=== PATIENT | male | born 1955 | race Caucasian/White ===

== ENCOUNTER → 2017-09-01 07:30 | Outpatient (CLI) | payer SELFPAY ==
[2017-09-01 08:36] LABS: Hemoglobin A1c 5.8 % (4.2-6.3)
== END ==
PROVIDERS: Family Provider Family Medicine; PCP Family Medicine; Visit Provider Family Medicine
DX: R73.03 Prediabetes (principal)
CPT/HCPCS: 36415; 83036

== ENCOUNTER → 2018-08-31 | Outpatient (CLI) | payer OTHER, SELFPAY ==
[2018-08-31 11:38] LABS: Absolute Lymphocyte Count 1.07 X10^3/ul (0.83-4.51); Absolute Neutrophil Count 2.1 X10^3/uL (2.0-7.7); Basophil# 0.01 X10^3/uL; Basophil% 0.3 % (0-1); Eosinophils% 2.8 % (0-5); Hematocrit 43.9 % (40-54); Hemoglobin 14.5 g/dl (13.0-16.5); Lymphocyte # 1.07 X10^3/ul (4.0); Lymphocyte % 29.5 % (19-41); Mean Corpuscular Hgb 28.4 pg (27.0-32.0); Mean Corpuscular Volume 85.9 fL (80-94); Mean Platelet Vol. 10.5 fl (6.2-12.0); Monocyte# 0.37 X10^3/uL; Monocyte% 10.2 % (0-10); Neutrophil # 2.06 X10^3/uL (2.7-7.7); Neutrophil % 56.6 % (47-70); Platelet Count 167 K/mm3 (150-450); RBC Distribution Width CV 13.5 % (11.6-14.6); RBC Distribution Width SD 41.8 fl (35.1-43.9); Red Blood Count 5.11 M/mm3 (4.6-6.2); White Blood Count 3.6 K/mm3 (4.4-11.0)
[2018-08-31 11:39] LABS: POSITIVE COUNT NO; POSITIVE DIFFERENTIAL NO; POSITIVE MORPHOLOGY NO
[2018-08-31 11:41] LABS: Color, Urine Yellow (Yellow); Glucose, Dipstick Normal (Normal); Ketone-Dipstick 5 mg/dl (Negative); Leukocyte Esterase-Dipstick 25 /ul (Negative); Nitrite-Dipstick Negative (Negative); Occult Blood-Urine Negative /ul (Negative); Protein-Dipstick 15 mg/dl (Negative); Specific Gravity, Urine 1.015 (1.002-1.030); Urine Bilirubin Dipstick Negative (Negative); Urine Clarity Clear (Clear); Urine Urobilinogen Normal (Normal)
[2018-08-31 11:47] LABS: Hemoglobin A1c 6.1 % (4.2-6.3)
[2018-08-31 11:58] LABS: ALB/GLOB Ratio 1.1 RATIO (0.9-2.4); AST(SGOT) 23 U/L (15-37); Alanine Aminotransfer ALT/SGPT 42 U/L (16-61); Albumin, Serum 3.7 g/dL (3.2-5.0); Alkaline Phosphatase 49 U/L (45-117); Anion Gap 4 (5-15); BUN 16 mg/dL (7-18); BUN/Creat Ratio 15.8 RATIO (10-20); Calcium,Total 8.8 mg/dL (8.5-10.1); Chloride 108 mmol/L (98-107); Cholesterol 157 mg/dL (200); Creatinine, Serum 1.01 mg/dL (0.70-1.30); EST Glomerular Filtration Rate 80 mL/min (>60); Est Glom Filt Rate - Afr Amer 96 mL/min (>60); Globulin 3.3 g/dL (2.2-4.2); Glucose 128 mg/dL (74-106); High Density Lipoprotein 31 mg/dL; Potassium 4.1 mmol/L (3.5-5.1); Sodium Level 141 mmol/L (136-145); Triglycerides 96 mg/dL; Very Low Density Lipoprotein 19 mg/dL (5-40)
== END | disposition home or self-care (01) ==
LOC: LAB 10:43
PROVIDERS: Family Provider Family Medicine; PCP Family Medicine; Referring Provider Family Medicine; Visit Provider Family Medicine
DX: Z00.00 Encounter for general adult medical examination without abnormal findings (principal); R73.03 Prediabetes; R97.20 Elevated prostate specific antigen [PSA]; I10 Essential (primary) hypertension
CPT/HCPCS: 36415; 80053; 80061; 81002; 83036; 85025

== ENCOUNTER 2019-02-19 09:39 | Day surgery (SDC) | payer OTHER, SELFPAY ==
[2019-02-12 11:24] VITALS: BP 148/91; PULSE 56; RESP 16; TEMP 36.2; O2SAT 99; BMI 39.1
--- NOTE | 2019-02-12 11:34 | SDCEKG_ITS ---
Test Reason : Blood Pressure : / mmHG Vent. Rate : 052 BPM Atrial Rate : 052 BPM P-R Int : 166 ms QRS Dur : 098 ms QT Int : 448 ms P-R-T Axes : -06 -05 011 degrees QTc Int : 416 ms Sinus bradycardia Minimal voltage criteria for LVH, may be normal variant Borderline ECG Confirmed by HENRY LOCK, TAWANA ([id number]), news assignment editor CECILIO LANDEROS ([id number]) on 02/17/2019 9:39:50 AM Referred By: Celestine Blanchard Confirmed By:TAWANA FIGUEROA MD
[2019-02-12 11:56] LABS: Hematocrit 43.6 % (40-54); Hemoglobin 14.5 g/dL (13.0-16.5); Mean Corp Hgb Conc 33.3 g/dL (32-36); Mean Corpuscular Hgb 29.2 pg (27.0-32.0); Mean Corpuscular Volume 87.7 fL (80-94); Mean Platelet Vol. 10.4 fl (6.2-12.0); Platelet Count 155 K/mm3 (150-450); RBC Distribution Width CV 13.2 % (11.6-14.6); RBC Distribution Width SD 42.2 fl (35.1-43.9); Red Blood Count 4.97 M/mm3 (4.6-6.2); White Blood Count 4.5 K/mm3 (4.4-11.0)
[2019-02-12 12:14] LABS: AST(SGOT) 16 U/L (15-37); Alanine Aminotransfer ALT/SGPT 38 U/L (16-61); Albumin, Serum 3.8 g/dL (3.2-5.0); Alkaline Phosphatase 47 U/L (45-117); Anion Gap 4 (5-15); BUN 13 mg/dL (7-18); BUN/Creat Ratio 14.7 RATIO (10-20); Bilirubin, Direct 0.19 mg/dL (0.00-0.30); Chloride 106 mmol/L (98-107); Creatinine, Serum 0.88 mg/dL (0.70-1.30); EST Glomerular Filtration Rate 93 mL/min (>60); Est Glom Filt Rate - Afr Amer 112 mL/min (>60); Estimated Creatinine Clearance 98.36 ml/min; Globulin 3.3 g/dL (2.2-4.2); Glucose 118 mg/dL (74-106); Potassium 4.3 mmol/L (3.5-5.1); Protein, Total 7.1 g/dL (6.4-8.2); Sodium Level 139 mmol/L (136-145)
[2019-02-19] VITALS (10 sets, daily range): BP systolic 117–161; BP diastolic 62–93; PULSE 59–80; RESP 16–18; TEMP 35.9–36.8; O2SAT 92–98; BMI 38.0
[2019-02-19] MEDS: Lactated Ringers 1,000 ML 100 ML IV ×2 (10:27→15:05)
--- NOTE | 2019-02-19 12:00 | PROS_PTH ---
PATIENT: MEAGAN ROBERT [place] [facility] [place][id number] AGE/SX: 64/M ROOM: RE02/19/[address]: Dr. Celestine Blanchard MD : 1955 BED: DIS: 02/20/2019 SPEC #: [id number] RECD: 02/19/19 16:05 STATUS: JOYCE BI #: [id number] EDGARD: 02/19/19 12:[address]: Celestine Blanchard DEPT: SURGICAL PATHOLOGY RECD BY: Travis Ellis ENTERED: 02/20/19 07:57 SP TYPE: TURP OTHR DR: Dr. Ten Henning MD Tissues: Prostate, NOS Procedures: Surgery Specimen Level IV HEADER OPERATION: Cysto, TUR prostate, Olymp[employer] PRE-OP DIAGNOSIS: BPH TISSUE SUBMITTED: Prostate tissue MICROSCOPIC DIAGNOSIS Prostate, transurethral resection: Benign nodular hyperplasia, glandular and stromal types. Chronic inflammation. AM:alirio 02/21/19 MICROSCOPIC DESCRIPTION Slides are reviewed. GROSS DESCRIPTION Received is one container labeled with the patient's name and designated prostate tissue. The specimen consists of multiple irregular fragments of pink-garza, rubbery, soft tissue that in aggregate weigh 14.8 gm and measure in aggregate 6 x 5.5 x 2 cm. Promotion Officer tissue is submitted in 12 cassettes. About 90% of the specimen is submitted. / SJ:alirio 02/20/19 TC:3 CPT: 85214
[2019-02-19] MEDS: Cefazolin 2 GM in 0.9% Normal Saline 100 ML IV (13:38)
--- NOTE | 2019-02-19 13:44 | DCINST_ITS ---
Discharge Diet: Light diet - advance as tolerated, Soft diet Discharge Activity: Return to Normal Activity Return to work on:: 03/12/19 May resume sexual activity in: 6 weeks Lifting Restrictions: no lifting Call your doctor if your incision/area has: Continuous Slow Oozing, Sudden Increased Bleeding, Increased Pain/ Swelling, Increased Redness, Foul Smelling Discharge, Swelling at the incision site Call your doctor if you observe: Fever of 101 or Higher, Inability to urinate Suture Line Care: Avoid Pulling/Pushing, Avoid Pinching/Bending Instructions: Transurethral Resection of the Prostate (TURP): Home Recovery Allergies/Adverse Reactions: Allergies No Known Allergies Allergy (Verified 02/19/19 10:07) Medications to take at Discharge Cyanocobalamin (Vitamin B-12) [Vitamin B-12] 1,000 mcg PO DAILY 02/12/19 Dutasteride [Avodart] 0.5 mg PO DAILY 02/12/19 Metoprolol Tartrate [Lopressor (Beta Debby)] 50 mg PO DAILY 02/12/19 Multivitamin with Minerals [Multiple Vitamin] 1 ea PO DAILY 02/12/19 Tamsulosin HCl [Flomax] 0.4 mg PO DAILY 02/12/19 Ciprofloxacin [Cipro] 500 mg PO BID #14 tab 02/19/19 The following prescriptions were given: Ciprofloxacin [Cipro] 500 mg PO BID #14 tab Prescription Printed Primary Care Physician: Ten Henning MD [Primary Care Provider] - Test Results: Test results from this visit will be discussed in further detail at your follow- up appointment, if applicable. Please Follow Up With: Celestine Blanchard MD When: in 2 weeks, please call to make an appointment. Proposed Discharge Date: 02/20/19
--- NOTE | 2019-02-19 14:55 | OP.PCM_ITS ---
Report of Operation Date of Procedure: 02/19/19 Pre-Operative Diagnosis: BPH with obstruction Post-Operative Diagnosis: Same Surgery/Procedure Performed:: Transurethral resection of the prostate Description of Surgical Findings:: 64-year-old male with a significantly enlarged prostate with obstructive symptoms and also has obstruction on cystoscopy on maximal medical therapy with tamsulosin and Proscar still having significant problems emptying his bladder so today he is elected to proceed with a transurethral resection of the prostate we talked about the surgery itself the risks involved bleeding infection incontinence regrowth of tissue surgery in the future failure to control symptoms. After reviewing everything in the patient and reviewing his expectations we will proceed 64-year-old male taken back to the operating room at the smooth induction of general anesthesia he was placed in dorsolithotomy position penis and testicles are prepped and draped in usual sterile fashion I first went in the bladder with a 21 Maltese rigid cystourethroscope to do inspection, the entire length urethra is normal the scar tissues or abnormality the sphincter was intact, the verumontanum was in the mid prostate there is a lot of prostatic tissue behind the verumontanum I then went into the bladder he had a obstructive median lobe identified the right and left ureteral orifice. I then put in the continuous- flow resectoscope and started resecting I assured marked out the distal ends of my resection at the [place] however there is a lot of obstructive tissue that was protruding down from the prostate beyond the Dara. After the very was was marked then I started the resection at the bladder neck and worked my way back to the verumontanum and then resected the right lobe of the prostate and then resect the left low the prostate and I switched over to the button vaporization action and vaporized the rest of the resection especially vaporizing very close to the sphincter make ensure that I had resected all the obstructive tissue but making sure I did not wrist resect behind the verumontanum the obstructive floppy tissue was then all resected the did a flow test had a nice wide open flow obtain hemostasis but a catheter into the bladder and the catheter was put on continuous bladder irrigation took about an hour to do the entire surgery and the patient is currently being awakened from anesthesia. At the end of the rese ction the urine was nice and clear on irrigation the left and right ureter orifice were uninjured and the sphincter looked intact when I look back in. Type of Anesthesia:: General Drains: [address] - Admit VTE Documentation VTE Present on Admission: No VTE Mechan Device Prophylaxis: SCD's
[2019-02-19] MEDS: Ciprofloxacin 400 MG/200 ML BAG 200 MG IV (21:15)
[2019-02-19] MEDS: Docusate Sodium 100 MG Capsule PO (21:19)
[2019-02-19] MEDS: 0.9% Normal Saline 1,000 ML 75 ML IV (21:25)
[2019-02-20] MEDS: Ibuprofen 600 MG Tablet PO (01:31)
[2019-02-20 02:30] VITALS: BP 128/83; PULSE 56; RESP 18; TEMP 36.8; O2SAT 100
--- NOTE | 2019-02-20 07:40 | PCM.PN.BLA ---
Progress Note Status post TURP the urine is fairly clear irrigation has been stopped today we can remove the catheter if he is able to urinate okay he can go home.
[2019-02-20 07:50] VITALS: O2SAT 96
[2019-02-20 09:18] VITALS: BP 148/93; PULSE 65; RESP 16; TEMP 36.5; O2SAT 99
[2019-02-20] MEDS: Docusate Sodium 100 MG Capsule PO (09:23)
[2019-02-20] MEDS: Tamsulosin HCl 0.4 MG Capsule PO (09:23)
[2019-02-20 09:24] VITALS: PULSE 65
[2019-02-20] MEDS: Metoprolol(XL)Succ 50 MG Tablet PO (09:24)
[2019-02-20] MEDS: Pantoprazole Sodium 40 MG Tablet PO (09:24)
[2019-02-20] MEDS: Ciprofloxacin 400 MG/200 ML BAG 200 MG IV (09:25)
== END 2019-02-20 12:22 | disposition home or self-care (01) ==
LOC: SDC 09:39 → AC 09:39 → MS3 13:59
PROVIDERS: Anesthesiology; Family Provider Family Medicine; PCP Family Medicine; Referring Provider Urology; Visit Provider Urology
PROC: (CPT 52601; principal; 2019-02-19 11:50)
DX: N40.1 Benign prostatic hyperplasia with lower urinary tract symptoms (principal); N13.8 Other obstructive and reflux uropathy; R35.0 Frequency of micturition; R33.8 Other retention of urine; R35.1 Nocturia; I10 Essential (primary) hypertension; G25.81 Restless legs syndrome; Z86.19 Personal history of other infectious and parasitic diseases; Z79.899 Other long term (current) drug therapy; Z87.891 Personal history of nicotine dependence
CPT/HCPCS: 52601; 80048; 80076; 85027; 88305; 93005; 99251; J7030; J7120; G0463; J0744; J2405

== ENCOUNTER 2019-02-22 13:21 | Emergency (ER) | payer OTHER, SELFPAY ==
[2019-02-19 10:08] VITALS: BMI 38.0
[2019-02-22 13:22] VITALS: BP 147/93; PULSE 70; RESP 15; TEMP 36.8; O2SAT 97; BMI 38.8
[2019-02-22 14:57] LABS: Bacteria 0 SEEN /hpf (None Seen); Mucous, Urine 0 SEEN /hpf (<or=2+); Squamous Epithelial Cells - UA 0 SEEN /hpf (0-5); White Blood Cells 0 SEEN /hpf (0-5)
[2019-02-22 15:10] LABS: Color, Urine Yellow (Yellow); Glucose, Dipstick Normal (Normal); Ketone-Dipstick 5 mg/dl (Negative); Leukocyte Esterase-Dipstick 100 /ul (Negative); Nitrite-Dipstick Positive (Negative); Occult Blood-Urine 250 /ul (Negative); Protein-Dipstick 100 mg/dl (Negative); Specific Gravity, Urine 1.015 (1.002-1.030); Urine Bilirubin Dipstick Negative (Negative); Urine Clarity Turbid (Clear); Urine Urobilinogen 1 mg/dl (Normal); Urine pH 6.5 (5.0 - 8.0)
[2019-02-22 15:18] LABS: Red Blood Cells-Urine > 100 SEEN /hpf (0-5)
[2019-02-22] MEDS: Phenazopyridine 95 MG Tablet 190 MG PO (15:38)
[2019-02-22] MEDS: Smz/Tmp Ds Tablet 1 TABLET PO (15:38)
--- NOTE | 2019-02-22 15:44 | ED.VISSUMM ---
- ER Visit Summary Date of Service: 02/22/19 Chief Complaint: [Urinary retention] History of Present Illness: The patient is a 64 M [resents to the ER with complaint of inability to urinate this morning. Patient states that he had prostate surgery and had a TURP that was done 3 days ago. Patient had had no issues leading up to today with urinating. Patient states that he had been constipated and had some bowel movements this morning. Patient on arrival to the emergency department went into the bathroom and had another large bowel movement and then was able to urinate. Patient denies any abdominal pain currently. He denies any fever. He is currently on ciprofloxacin. Patient has history of hypertension however no other medical issues.] Physical Examination: [HEENT-PERRLA, EOMI. Cranial nerves II through XII grossly intact. TMs clear. Mucous membranes moist. No adenopathy. Cardiovascular-regular rate and rhythm without murmur or ectopy Lungs-clear to auscultation, chest wall stable without crepitus or subcu emphysema Abdomen-normoactive bowel sounds, soft, nontender, no rebound or rigidity, no peritoneal signs. Extremities-intact ?4, normal range of motion, normal pulses, atraumatic] Test Results: [Urinalysis obtained showed greater than 100 RBCs and positive nitrites. 0 WBCs seen. Ultrasound.] Emergency Department Course and Treatment: [Bladder scan on arrival showed 150 cc of urine. This was discussed with patient's urologist who wanted me to continue with the Cipro. Patient did receive 1 dose of Bactrim while in the emergency department before I was told the patient was still on Cipro.] Treatment Plan: [Follow-up with urology as instructed prior.] I suspect his retention may have been caused by constipation which is what the patient believes happened as well. Also possible he may have had a clot obstructing the flow of urine from the bladder. Disposition: [Discharged home in stable condition.] Impression: [Urinary retention-resolved] This note was generated with [employer] dictation software. It may contain incorrect words, spelling, and punctuation that were not noted in review of the chart prior to signing ED Disposition - Plan for ED Patient: Referrals: Ten Henning MD [Primary Care Provider] -
--- NOTE | 2019-02-22 15:46 | ED.DEP ---
ED Disposition - Plan for ED Patient: Instructions: URINARY RETENTION, Male Referrals: Ten Henning MD [Primary Care Provider] - Celestine Blanchard MD [STAFF PHYSICIAN] - 3-5 Days
[2019-02-22 16:00] VITALS: PULSE 74; RESP 16; O2SAT 97
== END 2019-02-22 16:02 | disposition home or self-care (01) ==
LOC: ED 13:57
PROVIDERS: Emergency Provider Emergency Medicine; Family Provider Family Medicine; PCP Family Medicine
DX: R33.9 Retention of urine, unspecified (principal); Z98.890 Other specified postprocedural states; K59.00 Constipation, unspecified; I10 Essential (primary) hypertension; Z79.899 Other long term (current) drug therapy
CPT/HCPCS: 81001; 87086; 99283

== ENCOUNTER → 2019-11-01 07:31 | Outpatient (CLI) | payer OTHER, SELFPAY ==
[2019-11-01 08:29] LABS: Color, Urine Yellow (Yellow); Glucose, Dipstick Normal (Normal); Ketone-Dipstick Negative (Negative); Leukocyte Esterase-Dipstick Negative /ul (Negative); Nitrite-Dipstick Negative (Negative); Occult Blood-Urine Negative /ul (Negative); Protein-Dipstick 30 mg/dl (Negative); Urine Bilirubin Dipstick Negative (Negative); Urine Clarity Clear (Clear); Urine Urobilinogen Normal (Normal)
[2019-11-01 08:32] LABS: Absolute Lymphocyte Count 1.05 X10^3/uL (0.83-4.51); Absolute Neutrophil Count 2.1 X10^3/uL (2.0-7.7); Basophil# 0.03 X10^3/uL; Basophil% 0.8 % (0-1); Eosinophils% 2.7 % (0-5); Hematocrit 44.2 % (40-54); Hemoglobin 14.5 g/dL (13.0-16.5); Lymphocyte # 1.05 X10^3/ul (4.0); Lymphocyte % 28.7 % (19-41); Mean Corp Hgb Conc 32.8 g/dL (32-36); Mean Corpuscular Hgb 28.8 pg (27.0-32.0); Mean Corpuscular Volume 87.9 fL (80-94); Mean Platelet Vol. 10.9 fl (6.2-12.0); Monocyte# 0.37 X10^3/uL; Monocyte% 10.1 % (0-10); NRBC Flagged by Analyzer 0 % (0-5); Neutrophil % 57.4 % (47-70); Platelet Count 148 K/mm3 (150-450); RBC Distribution Width CV 13.2 % (11.6-14.6); RBC Distribution Width SD 42.7 fl (35.1-43.9); Red Blood Count 5.03 M/mm3 (4.6-6.2); White Blood Count 3.7 K/mm3 (4.4-11.0)
[2019-11-01 09:06] LABS: ALB/GLOB Ratio 1.2 RATIO (0.9-2.4); AST(SGOT) 20 U/L (15-37); Alanine Aminotransfer ALT/SGPT 47 U/L (16-61); Albumin, Serum 3.7 g/dL (3.2-5.0); Alkaline Phosphatase 51 U/L (45-117); Anion Gap 7 (5-15); BUN 16 mg/dL (7-18); BUN/Creat Ratio 16.9 RATIO (10-20); Calcium,Total 8.4 mg/dL (8.5-10.1); Chloride 106 mmol/L (98-107); Cholesterol 180 mg/dL (200); Creatinine, Serum 0.95 mg/dL (0.70-1.30); EST Glomerular Filtration Rate 86 mL/min (>60); Est Glom Filt Rate - Afr Amer 104 mL/min (>60); Globulin 3.1 g/dL (2.2-4.2); Glucose 162 mg/dL (74-106); Hemoglobin A1c 6.7 % (3.8-5.6); High Density Lipoprotein 30 mg/dL; PSA,Total- Diagnostic 3.49 ng/mL (0.0-4.0); Protein, Total 6.8 g/dL (6.4-8.2); Sodium Level 139 mmol/L (136-145); Triglycerides 96 mg/dL; Very Low Density Lipoprotein 19 mg/dL (5-40)
== END ==
LOC: LAB 07:33
PROVIDERS: PCP Family Medicine; Referring Provider Urology; Visit Provider Urology
DX: Z00.00 Encounter for general adult medical examination without abnormal findings (principal); R73.03 Prediabetes; I10 Essential (primary) hypertension; R68.82 Decreased libido
CPT/HCPCS: 36415; 80053; 80061; 81002; 83036; 84153; 84403; 85025

== ENCOUNTER → 2020-03-13 07:43 | Outpatient (CLI) | payer OTHER, SELFPAY ==
[2020-03-13 08:37] LABS: Anion Gap 3 (5-15); BUN 16 mg/dL (7-18); BUN/Creat Ratio 15.8 RATIO (10-20); Calcium,Total 8.6 mg/dL (8.5-10.1); Chloride 105 mmol/L (98-107); Creatinine, Serum 1.01 mg/dL (0.70-1.30); EST Glomerular Filtration Rate 79 mL/min (>60); Est Glom Filt Rate - Afr Amer 96 mL/min (>60); Glucose 188 mg/dL (74-106); Sodium Level 139 mmol/L (136-145)
[2020-03-13 08:46] LABS: Hemoglobin A1c 7.2 % (3.8-5.6)
== END ==
PROVIDERS: PCP Family Medicine
DX: I10 Essential (primary) hypertension (principal); R73.03 Prediabetes
CPT/HCPCS: 36415; 80048; 83036

== ENCOUNTER → 2020-05-01 07:40 | Outpatient (CLI) | payer OTHER, SELFPAY ==
[2020-05-01 08:18] LABS: AST(SGOT) 20 U/L (15-37); Alanine Aminotransfer ALT/SGPT 56 U/L (16-61); Albumin, Serum 3.7 g/dL (3.2-5.0); Alkaline Phosphatase 51 U/L (45-117); Bilirubin, Direct 0.13 mg/dL (0.00-0.30); Cholesterol 172 mg/dL (200); Globulin 3.3 g/dL (2.2-4.2); High Density Lipoprotein 32 mg/dL; Triglycerides 103 mg/dL; Very Low Density Lipoprotein 21 mg/dL (5-40)
== END ==
PROVIDERS: PCP Family Medicine
DX: E78.5 Hyperlipidemia, unspecified (principal)
CPT/HCPCS: 36415; 80061; 80076

== ENCOUNTER 2020-05-06 15:00 | Outpatient (RCR) | payer OTHER, SELFPAY | END 2020-05-16 23:59 | LOC: DC 15:00 | PROVIDERS: PCP Family Medicine | DX: Z71.3 Dietary counseling and surveillance (principal); E11.9 Type 2 diabetes mellitus without complications | CPT/HCPCS: G0108 ==

== ENCOUNTER 2020-05-27 15:00 | Outpatient (RCR) | payer OTHER, SELFPAY | END 2020-06-13 23:59 | LOC: DC 15:00 | PROVIDERS: PCP Family Medicine | DX: Z71.3 Dietary counseling and surveillance (principal); E11.9 Type 2 diabetes mellitus without complications | CPT/HCPCS: 97802; G0108 ==

== ENCOUNTER → 2020-06-12 07:48 | Outpatient (CLI) | payer OTHER, SELFPAY ==
[2020-06-12 09:10] LABS: Anion Gap 6 (5-15); BUN 13 mg/dL (7-18); BUN/Creat Ratio 13.3 RATIO (10-20); Calcium,Total 8.9 mg/dL (8.5-10.1); Chloride 106 mmol/L (98-107); Creatinine, Serum 0.98 mg/dL (0.70-1.30); EST Glomerular Filtration Rate 82 mL/min (>60); Est Glom Filt Rate - Afr Amer 99 mL/min (>60); Glucose 136 mg/dL (74-106); Potassium 4.2 mmol/L (3.5-5.1); Sodium Level 140 mmol/L (136-145)
== END ==
PROVIDERS: PCP Family Medicine
DX: I10 Essential (primary) hypertension (principal)
CPT/HCPCS: 36415; 80048

== ENCOUNTER 2020-07-05 16:30 | Outpatient (RCR) | payer OTHER, SELFPAY | END 2020-07-14 23:59 | LOC: DC 16:30 | PROVIDERS: PCP Family Medicine | DX: E11.9 Type 2 diabetes mellitus without complications (principal) | CPT/HCPCS: 97803 ==

== ENCOUNTER 2020-07-26 14:55 | Outpatient (RCR) | payer OTHER, SELFPAY | END 2020-08-13 23:59 | LOC: DC 14:55 | PROVIDERS: PCP Family Medicine | DX: E11.9 Type 2 diabetes mellitus without complications (principal) | CPT/HCPCS: 97803 ==

== ENCOUNTER → 2020-08-07 07:17 | Outpatient (CLI) | payer OTHER, SELFPAY ==
[2020-08-07 08:48] LABS: Hemoglobin A1c 5.9 % (3.8-5.6)
== END ==
PROVIDERS: PCP Family Medicine
DX: E11.9 Type 2 diabetes mellitus without complications (principal)
CPT/HCPCS: 36415; 83036

== ENCOUNTER 2020-09-09 15:00 | Outpatient (RCR) | payer OTHER, SELFPAY | END 2020-09-13 23:59 | LOC: DC 15:00 | PROVIDERS: PCP Family Medicine | DX: E11.9 Type 2 diabetes mellitus without complications (principal) | CPT/HCPCS: 97803; G0108 ==

== ENCOUNTER → 2020-09-23 14:07 | Outpatient (CLI) | payer OTHER, SELFPAY ==
[2020-09-23 14:53] LABS: Absolute Lymphocyte Count 1.03 X10^3/uL (0.83-4.51); Absolute Neutrophil Count 2.9 X10^3/uL (2.0-7.7); Basophil# 0.03 X10^3/uL; Basophil% 0.7 % (0-1); Eosinophil# 0.08 X10^3/uL; Eosinophils% 1.8 % (0-5); Hematocrit 45.2 % (40-54); Lymphocyte # 1.03 X10^3/ul (0.83-4.51); Lymphocyte % 22.9 % (19-41); Mean Corp Hgb Conc 33.2 g/dL (32-36); Mean Corpuscular Hgb 29.3 pg (27.0-32.0); Mean Corpuscular Volume 88.3 fL (80-94); Mean Platelet Vol. 10.6 fl (6.2-12.0); Monocyte# 0.46 X10^3/uL; Monocyte% 10.2 % (0-10); NRBC Flagged by Analyzer 0 % (0-5); Neutrophil # 2.89 X10^3/uL (2.7-7.7); Neutrophil % 64.2 % (47-70); Platelet Count 177 K/mm3 (150-450); RBC Distribution Width CV 13.1 % (11.6-14.6); RBC Distribution Width SD 42.1 fl (35.1-43.9); Red Blood Count 5.12 M/mm3 (4.6-6.2); White Blood Count 4.5 K/mm3 (4.4-11.0)
[2020-09-23 15:27] LABS: ALB/GLOB Ratio 1.2 RATIO (0.9-2.4); AST(SGOT) 22 U/L (15-37); Alanine Aminotransfer ALT/SGPT 40 U/L (16-61); Albumin, Serum 3.8 g/dL (3.2-5.0); Alkaline Phosphatase 50 U/L (45-117); Anion Gap 5 (5-15); BUN 17 mg/dL (7-18); Calcium,Total 9.1 mg/dL (8.5-10.1); Chloride 109 mmol/L (98-107); Cholesterol 128 mg/dL (200); Creatinine, Serum 0.95 mg/dL (0.70-1.30); EST Glomerular Filtration Rate 85 mL/min (>60); Est Glom Filt Rate - Afr Amer 103 mL/min (>60); Globulin 3.3 g/dL (2.2-4.2); Glucose 110 mg/dL (74-106); High Density Lipoprotein 36 mg/dL; Potassium 3.9 mmol/L (3.5-5.1); Protein, Total 7.1 g/dL (6.4-8.2); Sodium Level 142 mmol/L (136-145); Triglycerides 99 mg/dL; Very Low Density Lipoprotein 20 mg/dL (5-40)
[2020-09-23 15:32] LABS: Hemoglobin A1c 6.1 % (3.8-5.6)
== END ==
PROVIDERS: PCP Family Medicine; Referring Provider Family Medicine; Visit Provider Family Medicine
DX: Z00.00 Encounter for general adult medical examination without abnormal findings (principal); E11.9 Type 2 diabetes mellitus without complications; E78.5 Hyperlipidemia, unspecified; I10 Essential (primary) hypertension; R97.20 Elevated prostate specific antigen [PSA]
CPT/HCPCS: 36415; 80053; 80061; 83036; 84153; 85025

== ENCOUNTER 2020-09-23 14:27 | Outpatient (RCR) | payer OTHER, SELFPAY | END 2020-09-23 23:59 | disposition home or self-care (01) | LOC: DC 14:27 | PROVIDERS: PCP Family Medicine | DX: E11.9 Type 2 diabetes mellitus without complications (principal) | CPT/HCPCS: 97803 ==

== ENCOUNTER → 2021-03-19 07:08 | Outpatient (CLI) | payer OTHER, SELFPAY ==
[2021-03-19 07:53] LABS: ALB/GLOB Ratio 1.1 RATIO (0.9-2.4); AST(SGOT) 18 U/L (15-37); Alanine Aminotransfer ALT/SGPT 39 U/L (16-61); Albumin, Serum 3.5 g/dL (3.2-5.0); Alkaline Phosphatase 46 U/L (45-117); Anion Gap 5 (5-15); BUN 16 mg/dL (7-18); BUN/Creat Ratio 16.3 RATIO (10-20); Calcium,Total 8.6 mg/dL (8.5-10.1); Chloride 107 mmol/L (98-107); Cholesterol 130 mg/dL (200); Creatinine, Serum 0.98 mg/dL (0.70-1.30); EST Glomerular Filtration Rate 81 mL/min (>60); Est Glom Filt Rate - Afr Amer 99 mL/min (>60); Globulin 3.3 g/dL (2.2-4.2); Glucose 165 mg/dL (74-106); High Density Lipoprotein 33 mg/dL; Potassium 4.1 mmol/L (3.5-5.1); Protein, Total 6.8 g/dL (6.4-8.2); Sodium Level 139 mmol/L (136-145); Triglycerides 74 mg/dL; Very Low Density Lipoprotein 15 mg/dL (5-40)
[2021-03-19 07:57] LABS: Hemoglobin A1c 6.4 % (3.8-5.6)
== END ==
PROVIDERS: PCP Family Medicine; Referring Provider Family Medicine; Visit Provider Family Medicine
DX: I10 Essential (primary) hypertension (principal); E78.5 Hyperlipidemia, unspecified; E11.9 Type 2 diabetes mellitus without complications
CPT/HCPCS: 36415; 80053; 80061; 83036

== ENCOUNTER 2021-08-25 18:27 | Emergency (ER) | payer OTHER, SELFPAY ==
[2021-08-25 18:28] VITALS: BP 151/106; PULSE 82; RESP 16; TEMP 36.6; O2SAT 97; BMI 37.5
--- NOTE | 2021-08-25 19:13 | EX.ED.GUMALE ---
HPI History of Present Illness Chief Complaint: Complaint Informant: patient Narrative Narrative: Foamy intermittent dark versus bloody urine for the past 5 days. Dysuria. No fevers or abdominal pain. No back pain. History of BPH had surgery by Dr. Blanchard 5 years ago. Self-limiting sinus infection 2 weeks ago. Has some loose stools prior to urine symptoms. Denies decreased urine output. Prior similar symptoms: No PFSH PFSH Medical History (Updated 08/26/21 @ 01:[address] Nikhil Montiel DO) Cataracts, both eyes Enlarged prostate Former smoker Hypertension Home Medications multivitamin with minerals 1 ea PO DAILY 02/12/19 [History Last Taken 02/18/19] metoprolol succinate 50 mg PO QHS 02/19/19 [History Last Taken 02/19/19 07:00] lisinopril 10 mg PO DAILY 08/25/21 [History Last Taken Unknown] Allergy/AdvReac Type Severity Reaction Status Date / Time No Known Allergies Allergy Verified 08/25/21 18:28 Surgical History (Updated 08/25/21 @ 20:01 by Elida Fernandez) S/P TURP (transurethral resection of prostate) Surgical History no surgical history Social History Smoking Status: Never smoker ROS ROS ED Constitutional Constitutional ED: Denies chills, fever(s) or sweats Eyes Eyes: Denies change in vision ENT ENT ED: Denies dysphagia or sore throat Cardiovascular Cardiovascular: Denies chest pain, leg edema, palpitations or racing heartbeat Respiratory/Chest Respiratory/Chest: Denies cough, dyspnea or dyspnea on exertion Gastrointestinal Gastrointestinal: Denies abdominal pain, diarrhea, nausea or vomiting Genitourinary Genitourinary ED: Reports dysuria and hematuria; Denies urinary frequency Musculoskeletal Musculoskeletal: Denies back pain, extremity pain or neck pain Integumentary Denies rash or wounds Neurologic Neurologic: Denies headache(s), paresthesias or weakness EXAM Physical Exam Const Vital Signs: 08/25/21 18:28 08/25/21 21:33 Temperature 98 F Temperature Source Temporal Pulse Rate 82 79 Respiratory Rate 16 16 Blood Pressure 151/106 H 162/114 H Blood Pressure Mean 121 130 Pulse Ox 97 97 Oxygen Delivery Method Room Air Room Air Positive well nourished and well developed General Appearance ED: well developed and NAD HEENT Reports moist mucous membranes normocephalic and atraumatic Eyes PERRL, EOMs intact bilaterally and conjunctivae normal General Eye ED: Yes normal appearance of both eyes Neck no lymphadenopathy and supple General: Negative for tenderness Chest Wall Chest: Negative for tenderness Resp normal respiratory effort and normal air movement Effort and Inspection: symmetric chest movement; Negative for respiratory distress Cardio regular rate, regular rhythm and no murmurs Peripheral Pulses: pulses 2+ throughout GI normal to inspection, nondistended, normoactive bowel sounds and non-tender Palpation: Negative for guarding or rebound tenderness present Back/Spine no CVA tenderness and no thoracic nor lumbar tenderness Extremity normal to inspection General Extremety ED: Negative for edema or tenderness General Extremity: Negative for edema Neuro oriented x3 and no sensory deficits noted Sensorium / Orientation: awake and alert Skin no rashes or lesions noted and no wounds MDM MDM MDM Narrative Medical decision making narrative: Patient nontoxic on exam no acute distress. History reporting foamy to brown to red urine. Work-up initiated rule out any acute kidney injury. Creatinine was 1.09. WBC 6.1 hemoglobin 15.1. Urine noted hematuria with no infection cultures were sent. He reports he has had surgery to his prostate in the past followed by Dr. Blanchard, he denies tobacco history. I discussed and further work-up with imagings for structural evaluation. He agreed. CT IV contrast obtained noting a thickening bladder. Discussed this with the patient. He is given follow-up with Dr. Blanchard. He is urinating without difficulties. On reevaluation states urine was clearing up. However discussed he will need follow-up with urology. All questions were answered. Lab Data Attestation: I reviewed the patient's lab results. Labs: Laboratory Results - last 24 hr 08/25/21 08/25/21 08/25/21 19:11 19:19 19:19 WBC 6.1 RBC 5.22 Hgb 15.1 Hct 45.9 MCV 87.9 MCH 28.9 MCHC 32.9 RDW Std Deviation 41.5 RDW Coeff of Niki 12.9 Plt Count 198 MPV 10.5 Immature Gran % (Auto) 0.300 Neut % (Auto) 67.5 Lymph % (Auto) 19.9 [place] % (Auto) 10.0 Eos % (Auto) 1.5 Baso % (Auto) 0.8 Absolute Neuts (auto) 4.1 Absolute Lymphs (auto) 1.21 Nucleated RBC % 0 Sodium 140 Potassium 4.2 Chloride 109 H Carbon Dioxide 26.0 Anion Gap 5 BUN 21 H Creatinine 1.09 Estim Creat Clear Calc 77.38 Est GFR (MDRD) Af Amer 87 Est GFR (MDRD) Non-Af 72 BUN/Creatinine Ratio 19.3 Glucose 179 H Calcium 9.4 Urine Color Brown Urine Clarity Cloudy Urine pH 7.0 Ur Specific [place] 1.020 Urine Protein 500 H Urine Glucose (UA) Normal Urine Ketones 5 H Urine Occult Blood 250 H Urine Nitrite Negative Urine Bilirubin Negative Urine Urobilinogen Normal Ur Leukocyte Esterase Negative Urine RBC > 100 SEEN Urine WBC 0-5 SEEN Ur Squamous Epith Cells 0 SEEN Urine Bacteria 0 SEEN Urine Mucus RARE Radiography Diagnostic Testing: Clinical Impression(s) from Imaging Studies Abdomen/Pelvis CT 08/25/21 20:50 IMPRESSION: 1. Intermediate density layering within the dependent portion the urinary bladder suggesting blood product/hematoma. 2. Bladder wall thickening may be artifact or nondistention versus cystitis versus muscular hyperplasia. Electronically Signed: Willi Sow MD (Brooks) at 21:26 EDT Reading Location ID and State: [facility] / [place] , Service support , Discharge Plan Triage Chief Complaint: Complaint ED Provider: Nikhil Montiel Dx/Rx/DC Orders Clinical Impression: Hematuria, Bladder wall thickening Instructions: ED Hematuria Prescriptions: No Action multivitamin with minerals 1 EACH tablet 1 ea PO DAILY RF: 0 metoprolol succinate 50 MG tablet extended release 24 hr 50 mg PO QHS RF: 0 lisinopril 10 mg Tablet 10 mg PO DAILY RF: 0 Primary Care Provider: Ten Henning Referrals: Celestine Blanchard MD [STAFF PHYSICIAN] - 3-5 Days Ten Henning MD [Primary Care Provider] - Activity Restrictions/Additional Instructions: Urine with blood no infection. Culture pending. CT scan notes bladder wall thickening. Follow-up with Dr. Blanchard. Disposition Disposition: Home, Self Care Discharge Date/Time: 08/25/21 22:19
[2021-08-25 19:16] LABS: Bacteria 0 SEEN /hpf (None Seen); Squamous Epithelial Cells - UA 0 SEEN /hpf (0-5)
[2021-08-25 19:17] LABS: Color, Urine Brown (Yellow); Glucose, Dipstick Normal (Normal); Ketone-Dipstick 5 mg/dl (Negative); Leukocyte Esterase-Dipstick Negative /ul (Negative); Nitrite-Dipstick Negative (Negative); Occult Blood-Urine 250 /ul (Negative); Protein-Dipstick 500 mg/dl (Negative); Urine Bilirubin Dipstick Negative (Negative); Urine Clarity Cloudy (Clear); Urine Urobilinogen Normal (Normal)
[2021-08-25 19:34] LABS: Mucous, Urine RARE /hpf (<or=2+); Red Blood Cells-Urine > 100 SEEN /hpf (0-5)
[2021-08-25 19:35] LABS: White Blood Cells 0-5 SEEN /hpf (0-5)
[2021-08-25 19:42] LABS: Absolute Lymphocyte Count 1.21 X10^3/uL (0.83-4.51); Absolute Neutrophil Count 4.1 X10^3/uL (2.0-7.7); Basophil# 0.05 X10^3/uL; Basophil% 0.8 % (0-1); Eosinophil# 0.09 X10^3/uL; Eosinophils% 1.5 % (0-5); Hematocrit 45.9 % (40-54); Hemoglobin 15.1 g/dL (13.0-16.5); Lymphocyte # 1.21 X10^3/ul (0.83-4.51); Lymphocyte % 19.9 % (19-41); Mean Corp Hgb Conc 32.9 g/dL (32-36); Mean Corpuscular Hgb 28.9 pg (27.0-32.0); Mean Corpuscular Volume 87.9 fL (80-94); Mean Platelet Vol. 10.5 fl (6.2-12.0); Monocyte# 0.61 X10^3/uL; NRBC Flagged by Analyzer 0 % (0-5); Neutrophil % 67.5 % (47-70); Platelet Count 198 K/mm3 (150-450); RBC Distribution Width CV 12.9 % (11.6-14.6); RBC Distribution Width SD 41.5 fl (35.1-43.9); Red Blood Count 5.22 M/mm3 (4.6-6.2); White Blood Count 6.1 K/mm3 (4.4-11.0)
[2021-08-25 19:53] LABS: Anion Gap 5 (5-15); BUN 21 mg/dL (7-18); BUN/Creat Ratio 19.3 RATIO (10-20); Calcium,Total 9.4 mg/dL (8.5-10.1); Chloride 109 mmol/L (98-107); Creatinine, Serum 1.09 mg/dL (0.70-1.30); EST Glomerular Filtration Rate 72 mL/min (>60); Est Glom Filt Rate - Afr Amer 87 mL/min (>60); Estimated Creatinine Clearance 77.38 ml/min; Glucose 179 mg/dL (74-106); Potassium 4.2 mmol/L (3.5-5.1); Sodium Level 140 mmol/L (136-145)
--- NOTE | 2021-08-25 20:50 | CT_ITS ---
STUDY: CT ABDOMEN AND PELVIS WITH CONTRAST REASON FOR EXAM: Male, 66 years old. hematuria RADIATION DOSAGE (If Supplied By Facility): CTDIvol = ( 26.74 ) mGy, DLP = ( 1565.28 ) mGycm TECHNIQUE: Transaxial images were obtained from the dome of the diaphragm to the symphysis pubis without oral contrast. IV 100mL Isovue-370 was administered. Sagittal and coronal images were reconstructed. Individualized dose optimization techniques were used for this CT. COMPARISON: None. FINDINGS: The visualized lung bases are unremarkable. The visualized portions of the heart are within normal limits. There is decreased attenuation of the liver consistent with steatosis. No hepatic masses. Normal gallbladder and extrahepatic biliary system. Normal spleen. Normal pancreas. Normal bilateral adrenal glands. Bilateral renal cysts. No required imaging follow-up needed given high likelihood of benign nature. No hydronephrosis. Normal visualized stomach. Normal small intestine. There are multiple colonic diverticula consistent with diverticulosis. The appendix is visualized and appears normal. Atherosclerosis of the abdominal aorta. 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 Normal inferior vena cava. Normal retroperitoneum. Diffuse wall thickening of the urinary bladder, albeit not well distended. Intermediate density layers dependently in the urinary bladder on image 110 of series 2. The prostate is enlarged. Predominantly fat-containing hernia of the right inguinal region with appendix extending into the hernia sac. There are diffuse degenerative changes of the visualized lumbar spine. CT/Abdomen/Pelvis W IV Cont ONLY IMPRESSION: 1. Intermediate density layering within the dependent portion the urinary bladder suggesting blood product/hematoma. 2. Bladder wall thickening may be artifact or nondistention versus cystitis versus muscular hyperplasia. Electronically Signed: Willi Sow MD ([place]) at 21:26 EDT ,
[2021-08-25 21:33] VITALS: BP 162/114; PULSE 79; RESP 16; O2SAT 97
== END 2021-08-25 22:19 | disposition home or self-care (01) ==
PROVIDERS: Emergency Provider Emergency Medicine; PCP Family Medicine; Visit Provider Emergency Medicine
DX: R31.9 Hematuria, unspecified (principal); I10 Essential (primary) hypertension; N32.89 Other specified disorders of bladder; Z79.899 Other long term (current) drug therapy; N40.0 Benign prostatic hyperplasia without lower urinary tract symptoms
CPT/HCPCS: 74177; 80048; 81001; 85025; 87086; 99282; Q9967; A4216

== ENCOUNTER → 2021-09-10 | Outpatient (CLI) | payer OTHER, SELFPAY ==
[2021-09-10 08:15] LABS: Absolute Lymphocyte Count 1.08 X10^3/uL (0.83-4.51); Absolute Neutrophil Count 2.3 X10^3/uL (2.0-7.7); Basophil# 0.03 X10^3/uL; Basophil% 0.8 % (0-1); Eosinophil# 0.15 X10^3/uL; Eosinophils% 3.8 % (0-5); Hematocrit 43.8 % (40-54); Hemoglobin 14.2 g/dL (13.0-16.5); Lymphocyte # 1.08 X10^3/ul (0.83-4.51); Lymphocyte % 27.3 % (19-41); Mean Corp Hgb Conc 32.4 g/dL (32-36); Mean Corpuscular Hgb 28.7 pg (27.0-32.0); Mean Corpuscular Volume 88.7 fL (80-94); Mean Platelet Vol. 10.4 fl (6.2-12.0); Monocyte% 10.1 % (0-10); NRBC Flagged by Analyzer 0 % (0-5); Neutrophil # 2.28 X10^3/uL (2.7-7.7); Neutrophil % 57.7 % (47-70); Platelet Count 140 K/mm3 (150-450); RBC Distribution Width CV 12.9 % (11.6-14.6); Red Blood Count 4.94 M/mm3 (4.6-6.2)
[2021-09-10 08:41] LABS: ALB/GLOB Ratio 1.1 RATIO (0.9-2.4); AST(SGOT) 17 U/L (15-37); Alanine Aminotransfer ALT/SGPT 44 U/L (16-61); Albumin, Serum 3.5 g/dL (3.2-5.0); Alkaline Phosphatase 48 U/L (45-117); Anion Gap 4 (5-15); BUN 16 mg/dL (7-18); BUN/Creat Ratio 15.4 RATIO (10-20); Calcium,Total 8.5 mg/dL (8.5-10.1); Chloride 108 mmol/L (98-107); Cholesterol 113 mg/dL (200); Creatinine, Serum 1.04 mg/dL (0.70-1.30); EST Glomerular Filtration Rate 76 mL/min (>60); Est Glom Filt Rate - Afr Amer 92 mL/min (>60); Globulin 3.2 g/dL (2.2-4.2); Glucose 212 mg/dL (74-106); High Density Lipoprotein 34 mg/dL; PSA,Total - Annual Screen 5.18 ng/mL (0.00-4.00); Potassium 4.1 mmol/L (3.5-5.1); Protein, Total 6.7 g/dL (6.4-8.2); Sodium Level 140 mmol/L (136-145); Triglycerides 93 mg/dL; Very Low Density Lipoprotein 19 mg/dL (5-40)
[2021-09-10 08:50] LABS: Hemoglobin A1c 7.7 % (3.8-5.6)
== END | disposition home or self-care (01) ==
LOC: LAB 07:59
PROVIDERS: PCP Family Medicine; Referring Provider Family Medicine; Visit Provider Family Medicine
DX: Z00.00 Encounter for general adult medical examination without abnormal findings (principal); E11.9 Type 2 diabetes mellitus without complications; E78.5 Hyperlipidemia, unspecified; I10 Essential (primary) hypertension; R97.20 Elevated prostate specific antigen [PSA]
CPT/HCPCS: 36415; 80053; 80061; 83036; 84153; 85025; G0103

== ENCOUNTER 2021-12-14 08:00 | Outpatient (RCR) | payer OTHER, SELFPAY ==
[2021-11-23 10:15] VITALS: BP 144/93; PULSE 59; RESP 18; TEMP 36.1
--- NOTE | 2021-11-23 10:52 | PCM.WC.HP ---
History of Present Illness Date of Service: 11/23/21 Chief Complaint: Follow-up on an open and sebaceous cyst History of Wound: Went to urgent care at [facility] about this lump on his back. He cultured it and sent him on his way with doxycycline And told him to follow-up with the wound center. Patient has no previous history except for blood or high blood pressure. [facility] Medical History Cataracts, both eyes Enlarged prostate Former smoker Hypertension Home Medications multivitamin with minerals 1 ea PO DAILY supplement 02/12/19 [History Last Taken 02/18/19] metoprolol succinate 50 mg tablet,extended release 24 hr 50 mg PO QHS HEART 02/19/19 [History Last Taken 02/19/19 07:00] lisinopril 10 mg tablet 10 mg PO DAILY 08/25/21 [History Last Taken Unknown] Allergy/AdvReac Type Severity Reaction Status Date / Time No Known Allergies Allergy Verified 08/25/21 18:28 Surgical History S/P TURP (transurethral resection of prostate) Social History Smoking Status: Never smoker ROS Integumentary Integumentary: Reports wounds and other Details: Opening from a sebaceous cyst in the right lower back flank area Vital Signs Vital Signs Vital Signs: 11/23/21 10:15 Temperature 97 F L Temperature Source Temporal Pulse Rate 59 L Respiratory Rate 18 Blood Pressure 144/93 H Blood Pressure Mean 110 Blood Pressure Source Monitor Blood Pressure Position Sitting Blood Pressure Location Left Arm Oxygen Delivery Method Room Air Physical Exam Const oriented x3 General Appearance: cooperative Exam Limitations: no limitations Resp normal respiratory effort Effort and Inspection: able to speak in complete sentences Auscultation: clear to auscultation bilaterally Cardio regular rate and regular rhythm Palpation: normal PMI Rate: regular rate Rhythm: regular rhythm GI Auscultation: normoactive bowel sounds Palpation: soft and no hepatosplenomegaly external exam normal Back/Spine Cervical Spine: cervical ROM normal Thoracic Spine / Upper Back: normal to inspection Lumbar Spine / Lower Back: normal to inspection Skin no rashes or lesions noted Wound Narrative: Open wound right lower back no sac seen in the open wound has some circumferential undermining. Looks clean no sign of infection. Neuro oriented x3 Psych Appearance: grossly normal Speech: normal speech Thought Content: normal thought content Judgement: judgement good Debridement Note Debridement Note Wound debrided: Nonhealing sebaceous cyst right lower back Laterality: Right Type of Debridement: Excisional debridement Anesthesia Used: 5% Lidocaine Gel Depth: in the subcutaneous layer Percentage of wound debrided: 100 Instrument Used: 3mm curette Tissue Removed: Fibrin Severity: Fat Layer Exposed Amount of bleeding with debridement: Mild Bleeding Controlled with: Compression and gauze Patient tolerated procedure: Patient tolerated procedure well Post-Debridement Measurements and Additional Note: Post-Debridement Measurements/Treatment - Nurse 1 - General Ulcer Assessment Start: 11/23/21 10:15 Freq: Status: Active Protocol: ADITYA Activity Type Activity Date Activity User E-sign Co-sign Detail Recorded Client Recorded Date Recorded By Document 11/23/21 10:15 MO [id number] 11/23/21 10:26 MO 11/23/21 10:15 - Today's Visit Information Type of service Initial Visit Arrival Mode Ambulatory Patient Identification Verified (Name & Yes ) Vital Signs Temperature (97.8 F-99.1 F) 97 F L Temperature Source Temporal Pulse Rate (60-100) 59 L Pulse Location Monitor Respiratory Rate (12-18) 18 Respiratory rate source Observation Oxygen Delivery Method Room Air Blood Pressure (90/60-120/80) 144/93 H Blood Pressure Mean 110 Source Monitor Position Sitting Blood Pressure Location Left Arm History Since Last Visit- (Skip if this is Patient's initial visit) Left Footwear Regular Shoe Right Footwear Regular Shoe Pain Scale: 0-10 Numeric Is Patient Pain Free? Yes - Nurse 1 - General Ulcer Measurement Start: 11/23/21 10:15 Freq: Status: Active Protocol: Activity Type Activity Date Activity User E-sign Co-sign Detail Recorded Client Recorded Date Recorded By Document 11/23/21 10:15 MO [id number] 11/23/21 10:26 MO 11/23/21 10:15 Wound Center Nurse 1 #1 Right Upper Back -Current Size (cm) - Length 1.0 -Current Size (cm) - Width 0.9 -Current Size (cm) - Depth 0.4 -Total Square Cm 0.90 -Exudate Amt Medium -Exudate Type Sanguineous -Wound Margin Flat & Intact -Granulation Amt Large (67-100%) -Granulation Quality Pale,[place] -Texture (Shonda-wound Skin Appearance) Assessed -Moisture (Shonda-wound Skin Appearance) Assessed -Color (Shonda-wound Skin Appearance) Assessed -Temperature (Shonda-wound Skin No Abnormality Appearance) (Pt Warm) -Tenderness on Palpation (Shonda-wound No Skin Appearance) -Ulcer Cleansing Rinsed/ Irrigated with Saline -Foul Odor after Cleansing No -Anesthetic Used 4% Lidocaine Solution Lower Limb Edema Present NA WC - Nurse 2 - General Ulcer CM Notes Start: 11/23/21 10:15 Freq: Status: Active Protocol: Activity Type Activity Date Activity User E-sign Co-sign Detail Recorded Client Recorded Date Recorded By Document 11/23/21 10:33 MW [id number] 11/23/21 10:38 MW 11/23/21 10:33 Wound Center Nurse 2 #1 Right Upper Back -Time 10:35 -Correct Patient Yes -Correct Side, Site, Position Yes -Correct Procedure Yes -Procedure Performed Yes -Type of Procedure Debridement -Clinical Debridement Subcutaneous -Tissue Removed Subcutaneous -Post Debridement (cm) - Length 1.0 -Post Debridement (cm) - Width 0.7 -Post Debridement (cm) - Depth 0.6 -Total Square (Post) (cm) 0.70 -Area of Debridement (cm) - Length 1.0 -Area of Debridement (cm) - Width 0.7 -Total Square (Area) (cm) 0.70 -Tunneling No -Undermining/Tunneling No -Circular Undermining No -Wound/Ulcer Outcome Not Healed -Ulcer Cleansing Rinsed/ Irrigated with Saline -Foul Odor after Cleansing No -Bioengineered Tissue No -Bleeding Controlled with Pressure -Treatment Response Procedure Tolerated Well -Offloading No -Debridement - Subq, 1st 20sq cm Yes Pain Scale: 0-10 Numeric Is Patient Pain Free? Yes Assessment/Plan Assessment/Plan (1) Hypertension: CODE(S): I10 - Essential (primary) hypertension (2) Sebaceous cyst: CODE(S): L72.3 - Sebaceous cyst PLAN: Wash area with antibacterial soap apply Aquacel extra strips packing to the circumferential area underneath the skin and in the wound base itself. Moistened with water every day and cover with gauze dressing. Follow-up 1 week
[2021-11-30 08:19] VITALS: BP 159/100; PULSE 78; TEMP 36.1
--- NOTE | 2021-11-30 09:25 | PCM.WC.PN ---
History of Present Illness Date of Service: 11/30/21 Chief Complaint: Follow-up on an open and sebaceous cyst History of Wound: Went to urgent care at [facility] about this lump on his back. He cultured it and sent him on his way with doxycycline And told him to follow-up with the wound center. Patient has no previous history except for blood or high blood pressure. Progress of Wound: The hole is about the same size but the undermining is gone depth is better filling in with skin buds. Subjective Subjective Patient is happy that it is improving Objective Data Objective Data As above no sign of infection the undermining is sealed and the depth is more shallow. Vital Signs: Vital Signs Temp Pulse Resp BP O2 Del Method 97.0 F L 78 18 159/100 H Room Air 11/30/21 08:19 11/30/21 08:19 11/23/21 10:15 11/30/21 08:19 11/23/21 10:15 Oxygen Delivery Method Room Air Physical Exam Const oriented x3 General Appearance: cooperative Exam Limitations: no limitations Resp normal respiratory effort Effort and Inspection: able to speak in complete sentences Auscultation: clear to auscultation bilaterally Cardio regular rate and regular rhythm Palpation: normal PMI Rate: regular rate Rhythm: regular rhythm GI Auscultation: normoactive bowel sounds Palpation: soft and no hepatosplenomegaly external exam normal Back/Spine Cervical Spine: cervical ROM normal Thoracic Spine / Upper Back: normal to inspection Lumbar Spine / Lower Back: normal to inspection Skin no rashes or lesions noted Wound Narrative: Open wound right lower back no sac seen in the open wound has some circumferential undermining. Looks clean no sign of infection. Neuro oriented x3 Psych Appearance: grossly normal Speech: normal speech Thought Content: normal thought content Judgement: judgement good Debridement Note Debridement Note Wound debrided: Right upper back sebaceous cyst now open Type of Debridement: Excisional debridement Anesthesia Used: 5% Lidocaine Gel Depth: in the subcutaneous layer Percentage of wound debrided: 100 Instrument Used: 5mm curette Tissue Removed: Fibrin Severity: Fat Layer Exposed Amount of bleeding with debridement: Mild Bleeding Controlled with: Compression and gauze Patient tolerated procedure: Patient tolerated procedure well Post-Debridement Measurements and Additional Note: Post-Debridement Measurements/Treatment LETICIA - Nurse 1 - General Ulcer Assessment Start: 11/23/21 10:15 Freq: Status: Active Protocol: ADITYA Activity Type Activity Date Activity User E-sign Co-sign Detail Recorded Client Recorded Date Recorded By Document 11/23/21 10:15 NC [id number] 11/23/21 10:26 NC Document 11/30/21 08:19 KR Desktop 11/30/21 08:21 KR 11/23/21 11/30/21 10:15 08:19 - Today's Visit Information Type of service Initial Visit Follow-up Visit (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 ) Arrival Mode Ambulatory Ambulatory Patient Identification Verified (Name & Yes Yes ) Vital Signs Temperature (97.8 F-99.1 F) 97 F L 97.0 F L Temperature Source Temporal Temporal Pulse Rate (60-100) 59 L 78 Pulse Location Monitor Monitor Respiratory Rate (12-18) 18 Respiratory rate source Observation Oxygen Delivery Method Room Air Blood Pressure (90/60-120/80) 144/93 H 159/100 H Blood Pressure Mean (mm Hg) 110 119 Source Monitor Monitor Position Sitting Sitting Blood Pressure Location Left Arm Right Arm History Since Last Visit- (Skip if this is Patient's initial visit) Have you changed medications since your No last visit? Any new allergies or adverse reactions No Had a fall/change in ADL's that may No increase risk of falls Signs or symptoms of abuse and/or No neglect since last visit Have you been in the hospital since your No last visit? Has dressing in place as prescribed Yes Has compression in place as prescribed N/A Has offloadiing in place as prescribed N/A Experienced any changes in pain level or No management Left Footwear Regular Shoe Right Footwear Regular Shoe Pain Scale: 0-10 Numeric Is Patient Pain Free? Yes Yes - Nurse 1 - General Ulcer Measurement Start: 11/23/21 10:15 Freq: Status: Active Protocol: Activity Type Activity Date Activity User E-sign Co-sign Detail Recorded Client Recorded Date Recorded By Document 11/23/21 10:15 NC [id number] 11/23/21 10:26 NC Document 11/30/21 08:19 KR Desktop 11/30/21 08:21 KR 11/23/21 11/30/21 10:15 08:19 Wound Center Nurse 1 #1 Right Upper Back -Current Size (cm) - Length 1.0 0.6 -Current Size (cm) - Width 0.9 0.8 -Current Size (cm) - Depth 0.4 0.3 -Total Square Cm 0.90 0.48 -Exudate Amt Medium Small -Exudate Type Sanguineous Serosanguineous -Wound Margin Flat & Intact Distinct, Outline Attached -Granulation Amt Large (67-100%) Medium (34-66%) -Granulation Quality Pale,[place] Red -Necrosis Amt None Present (0 %) -Texture (Shonda-wound Skin Appearance) Assessed Assessed, Scarring -Moisture (Shonda-wound Skin Appearance) Assessed No Abnormality, Assessed -Color (Shonda-wound Skin Appearance) Assessed No Abnormality, Assessed -Temperature (Shonda-wound Skin No Abnormality No Abnormality Appearance) (Pt Warm) (Pt Warm) -Tenderness on Palpation (Shonda-wound No No Skin Appearance) -Ulcer Cleansing Rinsed/ Irrigated with Saline -Foul Odor after Cleansing No No -Anesthetic Used 4% Lidocaine 5% Lidocaine Solution Gel Lower Limb Edema Present NA WC - Nurse 2 - General Ulcer CM Notes Start: 11/23/21 10:15 Freq: Status: Active Protocol: Activity Type Activity Date Activity User E-sign Co-sign Detail Recorded Client Recorded Date Recorded By Document 11/23/21 10:33 MW [id number] 11/23/21 10:38 MW Document 11/30/21 08:33 MW [id number] 11/30/21 08:35 MW 11/23/21 11/30/21 10:33 08:33 Wound Center Nurse 2 #1 Right Upper Back -Time 10:35 08:33 -Correct Patient Yes Yes -Correct Side, Site, Position Yes Yes -Correct Procedure Yes Yes -Procedure Performed Yes Yes -Type of Procedure Debridement Debridement -Clinical Debridement Subcutaneous Subcutaneous -Tissue Removed Subcutaneous Subcutaneous -Post Debridement (cm) - Length 1.0 1.2 -Post Debridement (cm) - Width 0.7 0.7 -Post Debridement (cm) - Depth 0.6 0.3 -Total Square (Post) (cm) 0.70 0.84 -Area of Debridement (cm) - Length 1.0 1.2 -Area of Debridement (cm) - Width 0.7 0.7 -Total Square (Area) (cm) 0.70 0.84 -Tunneling No No -Undermining/Tunneling No No -Circular Undermining No No -Wound/Ulcer Outcome Not Healed Not Healed -Ulcer Cleansing Rinsed/ Rinsed/ Irrigated with Irrigated with Saline Saline -Foul Odor after Cleansing No No -Bioengineered Tissue No No -Bleeding Controlled with Pressure Pressure -Treatment Response Procedure Procedure Tolerated Well Tolerated Well -Offloading No No -Debridement - Subq, 1st 20sq cm Yes Yes Pain Scale: 0-10 Numeric Is Patient Pain Free? Yes Yes - Nurse 3 - General Ulcer D/C NN Start: 11/23/21 10:15 Freq: Status: Active Protocol: Activity Type Activity Date Activity User E-sign Co-sign Detail Recorded Client Recorded Date Recorded By Document 11/23/21 10:52 GERSON [id number] 11/23/21 10:53 KR Document 11/30/21 08:46 CHASIDY [id number] 11/30/21 08:46 CHASIDY 11/23/21 11/30/21 10:52 08:46 Wound Care Nurse 3 #1 Right Upper Back -Ulcer Cleansing Rinsed/ Rinsed/ Irrigated with Irrigated with Saline Saline -Foul Odor after Cleansing No -Negative Pressure Wound Therapy N/A -Primary Dressing Applied Aquacel AG 4x4 Promogran -Primary Dressing Covered/Secured with Dry Gauze, Dry Gauze, Secured with Secured with Tape Tape -Aquacel AG 4x4 1 -Promogran 2 Pain Scale: 0-10 Numeric Is Patient Pain Free? Yes Yes - Visit Discharge Discharge Condition Stable Stable Ambulatory Status Ambulatory Ambulatory Transportation Private Auto Private Auto Medication Reconcilliation completed & Yes provided to patient/care provider Clinical Summary of Care Provided Yes Assessment/Plan Assessment/Plan (1) Hypertension: CODE(S): I10 - Essential (primary) hypertension (2) Sebaceous cyst: CODE(S): L72.3 - Sebaceous cyst PLAN: Wash area with antibacterial soap apply Promogran packing to the wound base itself. Moistened with water every day and cover with gauze dressing. Follow-up 1 week
[2021-12-07 08:07] VITALS: BP 150/93; PULSE 62; TEMP 36.3
--- NOTE | 2021-12-07 09:46 | PN.PCM_ITS ---
History of Present Illness Date of Service: 12/07/21 Chief Complaint: Follow-up on an open and sebaceous cyst History of Wound: Went to urgent care at [facility] about this lump on his back. He cultured it and sent him on his way with doxycycline And told him to follow-up with the wound center. Patient has no previous history except for blood or high blood pressure. Progress of Wound: The hole is in his upper back is practically healed a small divot now. Tolerating the Promogran well its closing it should be discharged by next week Subjective Subjective Patient unable to see wound but is happy that we are thinking it is healing Objective Data Objective Data Sign ofNo sign of infection surrounding skin supple and pink infection. Seeing Promogran and will continue Vital Signs: Vital Signs Temp Pulse Resp BP O2 Del Method 97.3 F L 62 18 150/93 H Room Air 12/07/21 08:07 12/07/21 08:07 11/23/21 10:15 12/07/21 08:07 11/23/21 10:15 Oxygen Delivery Method Room Air Physical Exam Const oriented x3 General Appearance: cooperative Exam Limitations: no limitations Resp normal respiratory effort Effort and Inspection: able to speak in complete sentences Auscultation: clear to auscultation bilaterally Cardio regular rate and regular rhythm Palpation: normal PMI Rate: regular rate Rhythm: regular rhythm GI Auscultation: normoactive bowel sounds Palpation: soft and no hepatosplenomegaly external exam normal Back/Spine Cervical Spine: cervical ROM normal Thoracic Spine / Upper Back: normal to inspection Lumbar Spine / Lower Back: normal to inspection Skin no rashes or lesions noted Wound Narrative: Open wound right lower back no sac seen in the open wound has some circumferential undermining. Looks clean no sign of infection. Neuro oriented x3 Psych Appearance: grossly normal Speech: normal speech Thought Content: normal thought content Judgement: judgement good Debridement Note Debridement Note Wound debrided: Right lower back wound Laterality: Right Type of Debridement: Excisional debridement Anesthesia Used: 5% Lidocaine Gel Depth: Down to and including healthy tissue Percentage of wound debrided: 100 Instrument Used: 3mm curette Tissue Removed: Slough and fibrin Severity: Limited To Skin Breakdown Amount of bleeding with debridement: Mild Bleeding Controlled with: Pressure Patient tolerated procedure: Patient tolerated procedure well Post-Debridement Measurements and Additional Note: Post-Debridement Measurements/Treatment WC - Nurse 1 - General Ulcer Assessment Start: 11/23/21 10:15 Freq: Status: Active Protocol: ADITYA Activity Type Activity Date Activity User E-sign Co-sign Detail Recorded Client Recorded Date Recorded By Document 11/23/21 10:15 MT [id number] 11/23/21 10:26 MT Document 11/30/21 08:19 KR Desktop 11/30/21 08:21 KR Document 12/07/21 08:07 KR [id number] 12/07/21 08:08 KR 11/23/21 11/30/21 12/07/21 10:15 08:19 08:07 WC - Today's Visit Information Type of service Initial Visit Follow-up Visit Follow-up 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 ) ) Arrival Mode Ambulatory Ambulatory Ambulatory Patient Identification Verified (Name & Yes Yes Yes ) Vital Signs Temperature (97.8 F-99.1 F) 97 F L 97.0 F L 97.3 F L Temperature Source Temporal Temporal Temporal Pulse Rate (60-100) 59 L 78 62 Pulse Location Monitor Monitor Monitor Respiratory Rate (12-18) 18 Respiratory rate source Observation Oxygen Delivery Method Room Air Blood Pressure (90/60-120/80) 144/93 H 159/100 H 150/93 H Blood Pressure Mean (mm Hg) 110 119 112 Source Monitor Monitor Monitor Position Sitting Sitting Semi-Fowlers Blood Pressure Location Left Arm Right Arm Right Arm History Since Last Visit- (Skip if this is Patient's initial visit) Have you changed medications since your No No last visit? Any new allergies or adverse reactions No No Had a fall/change in ADL's that may No No increase risk of falls Signs or symptoms of abuse and/or No No neglect since last visit Have you been in the hospital since your No No last visit? Has dressing in place as prescribed Yes Yes Has compression in place as prescribed N/A N/A Has offloadiing in place as prescribed N/A N/A Experienced any changes in pain level or No No management Left Footwear Regular Shoe Regular Shoe Right Footwear Regular Shoe Regular Shoe Pain Scale: 0-10 Numeric Is Patient Pain Free? Yes Yes Yes LETICIA - Nurse 1 - General Ulcer Measurement Start: 11/23/21 10:15 Freq: Status: Active Protocol: Activity Type Activity Date Activity User E-sign Co-sign Detail Recorded Client Recorded Date Recorded By Document 11/23/21 10:15 MT [id number] 11/23/21 10:26 MT Document 11/30/21 08:19 KR Desktop 11/30/21 08:21 KR Document 12/07/21 08:07 KR [id number] 12/07/21 08:08 KR 11/23/21 11/30/21 12/07/21 10:15 08:19 08:07 Wound Center Nurse 1 #1 Right Upper Back -Current Size (cm) - Length 1.0 0.6 0.4 -Current Size (cm) - Width 0.9 0.8 0.3 -Current Size (cm) - Depth 0.4 0.3 0.1 -Total Square Cm 0.90 0.48 0.12 -Exudate Amt Medium Small Small -Exudate Type Sanguineous Serosanguineous Serosanguineous -Wound Margin Flat & Intact Distinct, Distinct, Outline Outline Attached Attached -Granulation Amt Large (67-100%) Medium (34-66%) Small (1-33%) -Granulation Quality Pale,[place] -Necrosis Amt None Present (0 None Present (0 %) %) -Texture (Shonda-wound Skin Appearance) Assessed Assessed, Assessed, Scarring Scarring -Moisture (Shonda-wound Skin Appearance) Assessed No Abnormality, No Abnormality, Assessed Assessed -Color (Shonda-wound Skin Appearance) Assessed No Abnormality, No Abnormality, Assessed Assessed -Temperature (Shonda-wound Skin No Abnormality No Abnormality No Abnormality Appearance) (Pt Warm) (Pt Warm) (Pt Warm) -Tenderness on Palpation (Shonda-wound No No No Skin Appearance) -Ulcer Cleansing Rinsed/ Rinsed/ Irrigated with Irrigated with Saline Saline -Foul Odor after Cleansing No No No -Anesthetic Used 4% Lidocaine 5% Lidocaine 5% Lidocaine Solution Gel Gel Lower Limb Edema Present NA WC - Nurse 2 - General Ulcer CM Notes Start: 11/23/21 10:15 Freq: Status: Active Protocol: Activity Type Activity Date Activity User E-sign Co-sign Detail Recorded Client Recorded Date Recorded By Document 11/23/21 10:33 MW [id number] 11/23/21 10:38 MW Document 11/30/21 08:33 MW [id number] 11/30/21 08:35 MW Document 12/07/21 08:37 PL [id number] 12/07/21 08:37 PL 11/23/21 11/30/21 12/07/21 10:33 08:33 08:37 Wound Center Nurse 2 #1 Right Upper Back -Time 10:35 08:33 08:22 -Correct Patient Yes Yes Yes -Correct Side, Site, Position Yes Yes Yes -Correct Procedure Yes Yes Yes -Procedure Performed Yes Yes Yes -Type of Procedure Debridement Debridement Debridement -Clinical Debridement Subcutaneous Subcutaneous Subcutaneous -Tissue Removed Subcutaneous Subcutaneous Subcutaneous -Post Debridement (cm) - Length 1.0 1.2 0.5 -Post Debridement (cm) - Width 0.7 0.7 0.7 -Post Debridement (cm) - Depth 0.6 0.3 0.1 -Total Square (Post) (cm) 0.70 0.84 0.35 -Area of Debridement (cm) - Length 1.0 1.2 0.5 -Area of Debridement (cm) - Width 0.7 0.7 0.7 -Total Square (Area) (cm) 0.70 0.84 0.35 -Tunneling No No No -Undermining/Tunneling No No No -Circular Undermining No No No -Wound/Ulcer Outcome Not Healed Not Healed Not Healed -Ulcer Cleansing Rinsed/ Rinsed/ Rinsed/ Irrigated with Irrigated with Irrigated with Saline Saline Saline -Foul Odor after Cleansing No No No -Bioengineered Tissue No No No -Bleeding Controlled with Pressure Pressure Pressure -Treatment Response Procedure Procedure Procedure Tolerated Well Tolerated Well Tolerated Well -Offloading No No -Debridement - Subq, 1st 20sq cm Yes Yes Yes Pain Scale: 0-10 Numeric Is Patient Pain Free? Yes Yes Yes WC - Nurse 3 - General Ulcer D/C NN Start: 11/23/21 10:15 Freq: Status: Active Protocol: Activity Type Activity Date Activity User E-sign Co-sign Detail Recorded Client Recorded Date Recorded By Document 11/23/21 10:52 KR [id number] 11/23/21 10:53 KR Document 11/30/21 08:46 AK [id number] 11/30/21 08:46 AK Document 12/07/21 08:27 KR [id number] 12/07/21 08:28 KR 11/23/21 11/30/21 12/07/21 10:52 08:46 08:27 Wound Care Nurse 3 #1 Right Upper Back -Ulcer Cleansing Rinsed/ Rinsed/ Rinsed/ Irrigated with Irrigated with Irrigated with Saline Saline Saline -Foul Odor after Cleansing No -Negative Pressure Wound Therapy N/A -Primary Dressing Applied Aquacel AG 4x4 Promogran Promogran Trini Matter -Primary Dressing Covered/Secured with Dry Gauze, Dry Gauze, Dry Gauze, Secured with Secured with Secured with Tape Tape Tape -Aquacel AG 4x4 1 -Promogran 2 -Promogran Trini Matter 1 Pain Scale: 0-10 Numeric Is Patient Pain Free? Yes Yes Yes WC - Visit Discharge Discharge Condition Stable Stable Stable Ambulatory Status Ambulatory Ambulatory Ambulatory Transportation Private Auto Private Auto Private Auto Medication Reconcilliation completed & Yes provided to patient/care provider Clinical Summary of Care Provided Yes Assessment/Plan Assessment/Plan (1) Hypertension: CODE(S): I10 - Essential (primary) hypertension (2) Sebaceous cyst: CODE(S): L72.3 - Sebaceous cyst PLAN: Wash area with antibacterial soap apply Promogran packing to the wound base itself. Moistened with water every day and cover with gauze dressing. Follow-up 1 week
[2021-12-14 07:56] VITALS: BP 153/74; PULSE 100; TEMP 36.2
--- NOTE | 2021-12-14 11:02 | PN.PCM_ITS ---
History of Present Illness Date of Service: 12/14/21 Chief Complaint: Follow-up on an open and sebaceous cyst History of Wound: Went to urgent care at [facility] about this lump on his back. He cultured it and sent him on his way with doxycycline And told him to follow-up with the wound center. Patient has no previous history except for blood or high blood pressure. Progress of Wound: Wound is completely healed today patient will be discharged from the wound center Subjective Subjective Patient is very happy about not having to come back Objective Data Objective Data New skin developed no sign of infection completely closed. Vital Signs: Vital Signs Temp Pulse Resp BP O2 Del Method 97.1 F L 100 18 153/74 H Room Air 12/14/21 07:56 12/14/21 07:56 11/23/21 10:15 12/14/21 07:56 11/23/21 10:15 Oxygen Delivery Method Room Air Lab / Micro Data Attestation: I reviewed the patient's lab results. Physical Exam Const oriented x3 General Appearance: cooperative Exam Limitations: no limitations Resp normal respiratory effort Effort and Inspection: able to speak in complete sentences Auscultation: clear to auscultation bilaterally Cardio regular rate and regular rhythm Palpation: normal PMI Rate: regular rate Rhythm: regular rhythm GI Auscultation: normoactive bowel sounds Palpation: soft and no hepatosplenomegaly external exam normal Back/Spine Cervical Spine: cervical ROM normal Thoracic Spine / Upper Back: normal to inspection Lumbar Spine / Lower Back: normal to inspection Skin no rashes or lesions noted Wound Narrative: Open wound right lower back no sac seen in the open wound has some circumferential undermining. Looks clean no sign of infection. Neuro oriented x3 Psych Appearance: grossly normal Speech: normal speech Thought Content: normal thought content Judgement: judgement good Debridement Note Debridement Note No debridement was completed: No debridement was completed today Post-Debridement Measurements and Additional Note: Post-Debridement Measurements/Treatment LETICIA - Nurse 1 - General Ulcer Assessment Start: 11/23/21 10:15 Freq: Status: Active Protocol: ADITYA Activity Type Activity Date Activity User E-sign Co-sign Detail Recorded Client Recorded Date Recorded By Document 11/23/21 10:15 MT [id number] 11/23/21 10:26 MT Document 11/30/21 08:19 KR Desktop 11/30/21 08:21 KR Document 12/07/21 08:07 KR [id number] 12/07/21 08:08 KR Document 12/14/21 07:56 KR [id number] 12/14/21 08:01 KR 11/23/21 11/30/21 12/07/21 10:15 08:19 08:07 - Today's Visit Information Type of service Initial Visit Follow-up Visit Follow-up Visit (Physician/INSTRUCTIONAL DEVELOPER (Physician/INSTRUCTIONAL DEVELOPER ) ) Arrival Mode Ambulatory Ambulatory Ambulatory Patient Identification Verified (Name & Yes Yes Yes ) Vital Signs Temperature (97.8 F-99.1 F) 97 F L 97.0 F L 97.3 F L Temperature Source Temporal Temporal Temporal Pulse Rate (60-100) 59 L 78 62 Pulse Location Monitor Monitor Monitor Respiratory Rate (12-18) 18 Respiratory rate source Observation Oxygen Delivery Method Room Air Blood Pressure (90/60-120/80) 144/93 H 159/100 H 150/93 H Blood Pressure Mean (mm Hg) 110 119 112 Source Monitor Monitor Monitor Position Sitting Sitting Semi-Fowlers Blood Pressure Location Left Arm Right Arm Right Arm History Since Last Visit- (Skip if this is Patient's initial visit) Have you changed medications since your No No last visit? Any new allergies or adverse reactions No No Had a fall/change in ADL's that may No No increase risk of falls Signs or symptoms of abuse and/or No No neglect since last visit Have you been in the hospital since your No No last visit? Has dressing in place as prescribed Yes Yes Has compression in place as prescribed N/A N/A Has offloadiing in place as prescribed N/A N/A Experienced any changes in pain level or No No management Left Footwear Regular Shoe Regular Shoe Right Footwear Regular Shoe Regular Shoe Pain Scale: 0-10 Numeric Is Patient Pain Free? Yes Yes Yes 12/14/21 07:56 - Today's Visit Information Type of service Follow-up Visit (Physician/INSTRUCTIONAL DEVELOPER ) Arrival Mode Ambulatory Patient Identification Verified (Name & Yes ) Vital Signs Temperature (97.8 F-99.1 F) 97.1 F L Temperature Source Temporal Pulse Rate (60-100) 100 Pulse Location Monitor Respiratory Rate (12-18) Respiratory rate source Oxygen Delivery Method Blood Pressure (90/60-120/80) 153/74 H Blood Pressure Mean (mm Hg) 100 Source Monitor Position Semi-Fowlers Blood Pressure Location Left Arm History Since Last Visit- (Skip if this is Patient's initial visit) Have you changed medications since your No last visit? Any new allergies or adverse reactions No Had a fall/change in ADL's that may No increase risk of falls Signs or symptoms of abuse and/or No neglect since last visit Have you been in the hospital since your No last visit? Has dressing in place as prescribed Yes Has compression in place as prescribed N/A Has offloadiing in place as prescribed N/A Experienced any changes in pain level or No management Left Footwear Regular Shoe Right Footwear Regular Shoe Pain Scale: 0-10 Numeric Is Patient Pain Free? Yes WC - Nurse 1 - General Ulcer Measurement Start: 11/23/21 10:15 Freq: Status: Active Protocol: Activity Type Activity Date Activity User E-sign Co-sign Detail Recorded Client Recorded Date Recorded By Document 11/23/21 10:15 UT [id number] 11/23/21 10:26 UT Document 11/30/21 08:19 KR Desktop 11/30/21 08:21 KR Document 12/07/21 08:07 KR [id number] 12/07/21 08:08 KR Document 12/14/21 07:56 KR [id number] 12/14/21 08:01 KR 11/23/21 11/30/21 12/07/21 10:15 08:19 08:07 Wound Center Nurse 1 #1 Right Upper Back -Current Size (cm) - Length 1.0 0.6 0.4 -Current Size (cm) - Width 0.9 0.8 0.3 -Current Size (cm) - Depth 0.4 0.3 0.1 -Total Square Cm 0.90 0.48 0.12 -Exudate Amt Medium Small Small -Exudate Type Sanguineous Serosanguineous Serosanguineous -Wound Margin Flat & Intact Distinct, Distinct, Outline Outline Attached Attached -Granulation Amt Large (67-100%) Medium (34-66%) Small (1-33%) -Granulation Quality Pale,[place] Red [place] -Necrosis Amt None Present (0 None Present (0 %) %) -Texture (Shonda-wound Skin Appearance) Assessed Assessed, Assessed, Scarring Scarring -Moisture (Shonda-wound Skin Appearance) Assessed No Abnormality, No Abnormality, Assessed Assessed -Color (Shonda-wound Skin Appearance) Assessed No Abnormality, No Abnormality, Assessed Assessed -Temperature (Shonda-wound Skin No Abnormality No Abnormality No Abnormality Appearance) (Pt Warm) (Pt Warm) (Pt Warm) -Tenderness on Palpation (Shonda-wound No No No Skin Appearance) -Ulcer Cleansing Rinsed/ Rinsed/ Irrigated with Irrigated with Saline Saline -Foul Odor after Cleansing No No No -Anesthetic Used 4% Lidocaine 5% Lidocaine 5% Lidocaine Solution Gel Gel Lower Limb Edema Present NA 12/14/21 07:56 Wound Center Nurse 1 #1 Right Upper Back -Current Size (cm) - Length 0.1 -Current Size (cm) - Width 0.1 -Current Size (cm) - Depth 0.1 -Total Square Cm 0.01 -Exudate Amt None Present -Exudate Type -Wound Margin Distinct, Outline Attached -Granulation Amt None Present (0 %) -Granulation Quality -Necrosis Amt None Present (0 %) -Texture (Shonda-wound Skin Appearance) Assessed, Scarring -Moisture (Shonda-wound Skin Appearance) No Abnormality, Assessed -Color (Shonda-wound Skin Appearance) No Abnormality, Assessed -Temperature (Shonda-wound Skin No Abnormality Appearance) (Pt Warm) -Tenderness on Palpation (Shonda-wound No Skin Appearance) -Ulcer Cleansing Rinsed/ Irrigated with Saline -Foul Odor after Cleansing No -Anesthetic Used 5% Lidocaine Gel Lower Limb Edema Present WC - Nurse 2 - General Ulcer CM Notes Start: 11/23/21 10:15 Freq: Status: Active Protocol: Activity Type Activity Date Activity User E-sign Co-sign Detail Recorded Client Recorded Date Recorded By Document 11/23/21 10:33 MW [id number] 11/23/21 10:38 MW Document 11/30/21 08:33 MW [id number] 11/30/21 08:35 MW Document 12/07/21 08:37 [address] [id number] 12/07/21 08:37 PL Document 12/14/21 08:18 MW [id number] 12/14/21 08:20 MW 11/23/21 11/30/21 12/07/21 10:33 08:33 08:37 Wound Center Nurse 2 #1 Right Upper Back -Time 10:35 08:33 08:22 -Correct Patient Yes Yes Yes -Correct Side, Site, Position Yes Yes Yes -Correct Procedure Yes Yes Yes -Procedure Performed Yes Yes Yes -Type of Procedure Debridement Debridement Debridement -Clinical Debridement Subcutaneous Subcutaneous Subcutaneous -Tissue Removed Subcutaneous Subcutaneous Subcutaneous -Post Debridement (cm) - Length 1.0 1.2 0.5 -Post Debridement (cm) - Width 0.7 0.7 0.7 -Post Debridement (cm) - Depth 0.6 0.3 0.1 -Total Square (Post) (cm) 0.70 0.84 0.35 -Area of Debridement (cm) - Length 1.0 1.2 0.5 -Area of Debridement (cm) - Width 0.7 0.7 0.7 -Total Square (Area) (cm) 0.70 0.84 0.35 -Tunneling No No No -Undermining/Tunneling No No No -Circular Undermining No No No -Wound/Ulcer Outcome Not Healed Not Healed Not Healed -Ulcer Cleansing Rinsed/ Rinsed/ Rinsed/ Irrigated with Irrigated with Irrigated with Saline Saline Saline -Foul Odor after Cleansing No No No -Bioengineered Tissue No No No -Bleeding Controlled with Pressure Pressure Pressure -Treatment Response Procedure Procedure Procedure Tolerated Well Tolerated Well Tolerated Well -Offloading No No -Debridement - Subq, 1st 20sq cm Yes Yes Yes Pain Scale: 0-10 Numeric Is Patient Pain Free? Yes Yes Yes 12/14/21 08:18 Wound Center Nurse 2 #1 Right Upper Back -Time 08:19 -Correct Patient Yes -Correct Side, Site, Position Yes -Correct Procedure Yes -Procedure Performed No -Type of Procedure -Clinical Debridement -Tissue Removed -Post Debridement (cm) - Length 0 -Post Debridement (cm) - Width 0 -Post Debridement (cm) - Depth 0 -Total Square (Post) (cm) 0 -Area of Debridement (cm) - Length -Area of Debridement (cm) - Width -Total Square (Area) (cm) -Tunneling -Undermining/Tunneling -Circular Undermining -Wound/Ulcer Outcome Healed- Epithelialized -Ulcer Cleansing -Foul Odor after Cleansing -Bioengineered Tissue -Bleeding Controlled with -Treatment Response -Offloading -Debridement - Subq, 1st 20sq cm Pain Scale: 0-10 Numeric Is Patient Pain Free? Yes WC - Nurse 3 - General Ulcer D/C NN Start: 11/23/21 10:15 Freq: Status: Active Protocol: Activity Type Activity Date Activity User E-sign Co-sign Detail Recorded Client Recorded Date Recorded By Document 11/23/21 10:52 KR [id number] 11/23/21 10:53 KR Document 11/30/21 08:46 AK [id number] 11/30/21 08:46 AK Document 12/07/21 08:27 KR [id number] 12/07/21 08:28 KR Document 12/14/21 08:20 MW [id number] 12/14/21 08:20 MW 11/23/21 11/30/21 12/07/21 10:52 08:46 08:27 Wound Care Nurse 3 #1 Right Upper Back -Ulcer Cleansing Rinsed/ Rinsed/ Rinsed/ Irrigated with Irrigated with Irrigated with Saline Saline Saline -Foul Odor after Cleansing No -Negative Pressure Wound Therapy N/A -Primary Dressing Applied Aquacel AG 4x4 Promogran Promogran Trini Matter -Primary Dressing Covered/Secured with Dry Gauze, Dry Gauze, Dry Gauze, Secured with Secured with Secured with Tape Tape Tape -Aquacel AG 4x4 1 -Promogran 2 -Promogran Trini Matter 1 Treatment Response Pain Scale: 0-10 Numeric Is Patient Pain Free? Yes Yes Yes Teaching: Wound Center Discharge Instructions -Person Taught -Teaching Method -Response to teaching WC - Visit Discharge Discharge Condition Stable Stable Stable Ambulatory Status Ambulatory Ambulatory Ambulatory Transportation Private Auto Private Auto Private Auto Accompanied by Medication Reconcilliation completed & Yes provided to patient/care provider Clinical Summary of Care Provided Yes 12/14/21 08:20 Wound Care Nurse 3 #1 Right Upper Back -Ulcer Cleansing -Foul Odor after Cleansing -Negative Pressure Wound Therapy -Primary Dressing Applied -Primary Dressing Covered/Secured with -Aquacel AG 4x4 -Promogran -Promogran Trini Matter Treatment Response Procedure Tolerated Well Pain Scale: 0-10 Numeric Is Patient Pain Free? Yes Teaching: Wound Center Discharge Instructions -Person Taught Patient -Teaching Method Discussion -Response to teaching Verbalize understanding WC - Visit Discharge Discharge Condition Stable Ambulatory Status Ambulatory Transportation Private Auto Accompanied by self Medication Reconcilliation completed & No provided to patient/care provider Clinical Summary of Care Provided Yes Assessment/Plan Assessment/Plan (1) Hypertension: CODE(S): I10 - Essential (primary) hypertension (2) Sebaceous cyst: CODE(S): L72.3 - Sebaceous cyst PLAN: All resolved patient will be discharged from the wound center follow-up as needed
== END 2021-12-14 23:59 | disposition home or self-care (01) ==
LOC: WC 08:00
PROVIDERS: PCP Family Medicine; Visit Provider Nurse Practitioner
DX: L72.3 Sebaceous cyst (principal); I10 Essential (primary) hypertension; N40.0 Benign prostatic hyperplasia without lower urinary tract symptoms; Z79.899 Other long term (current) drug therapy; Z87.891 Personal history of nicotine dependence; Z90.79 Acquired absence of other genital organ(s)
CPT/HCPCS: 11042; 99203; 99212; G0463

== ENCOUNTER → 2021-12-16 | Outpatient (CLI) | payer OTHER, SELFPAY ==
[2021-12-18 11:39] LABS: PSA, Free 0.51 ng/mL; PSA, Free % 21.3 % (.); PSA, Total Ultrasensitive 2.4 ng/mL (0.0-4.0)
== END | disposition home or self-care (01) ==
LOC: LAB 07:02
PROVIDERS: PCP Family Medicine; Referring Provider Urology; Visit Provider Urology
DX: R97.20 Elevated prostate specific antigen [PSA] (principal)
CPT/HCPCS: 36415; 84153; 84154

== ENCOUNTER → 2022-12-25 | Outpatient (CLI) | payer MEDICARE, SELFPAY ==
[2022-12-25 10:36] LABS: PSA,Total- Diagnostic 2.69 ng/mL (0.0-4.0)
== END | disposition home or self-care (01) ==
PROVIDERS: PCP Family Medicine; Referring Provider Urology; Visit Provider Urology
DX: R97.20 Elevated prostate specific antigen [PSA] (principal)
CPT/HCPCS: 36415; 84153

== ENCOUNTER → 2023-12-31 | Outpatient (CLI) | payer MEDICARE, SELFPAY ==
[2023-12-31 17:08] LABS: PSA,Total- Diagnostic 1.97 ng/mL (0.0-4.0)
== END | disposition home or self-care (01) ==
LOC: LAB 15:51
PROVIDERS: PCP Family Medicine; Referring Provider Nurse Practitioner; Visit Provider Nurse Practitioner
DX: R97.20 Elevated prostate specific antigen [PSA] (principal)
CPT/HCPCS: 36415; 84153

== ENCOUNTER → 2025-01-08 | Outpatient (CLI) | payer MEDICARE, SELFPAY ==
[2025-01-08 10:17] LABS: PSA,Total- Diagnostic 2.23 ng/mL (0.00-4.00)
== END | disposition home or self-care (01) ==
LOC: LAB 08:24
PROVIDERS: PCP Family Medicine; Referring Provider Urology; Visit Provider Urology
DX: R97.20 Elevated prostate specific antigen [PSA] (principal)
CPT/HCPCS: 36415; 84153